=== PATIENT | female | born 1960 | race Caucasian/White ===

== ENCOUNTER → 2024-09-09 | Outpatient (CLI) | payer MEDICARE, SELFPAY ==
[2024-09-09 11:18] LABS: OBS Card Expiration Date 2026-09; OBS Card Lot # 23001; OBS Performed By LAB; OBS QC OK? Yes
[2024-09-09 13:47] LABS: OBS Developer Lot # 23003; Occult Blood, Stool Negative (Negative)
== END | disposition home or self-care (01) ==
LOC: SLDO 11:08
PROVIDERS: Referring Provider Family Medicine; Visit Provider Family Medicine
DX: Z12.11 Encounter for screening for malignant neoplasm of colon (principal)
CPT/HCPCS: 82270

== ENCOUNTER 2024-10-26 21:11 | Emergency (ER) | payer MEDICARE, SELFPAY ==
[2024-10-26 21:20] VITALS: PULSE 156; RESP 18; O2SAT 96
[2024-10-26 21:23] VITALS: BP 139/104; PULSE 145; RESP 18; TEMP 37.6; O2SAT 97
[2024-10-26 21:24] VITALS: BMI 16.9
[2024-10-26 21:25] VITALS: PULSE 142
[2024-10-26 21:29] VITALS: PULSE 141
[2024-10-26] MEDS: SODIUM CHLORIDE 0.9% 1000 ML 1,000 ML 999 ML IV (21:30)
[2024-10-26 21:34] LABS: Basophils # (Auto) 0.1 Thou/mm3 (0.0-0.2); Basophils % (Auto) 1 % (0-2.5); Eosinophils # (Auto) 0.5 Thou/mm3 (0.0-0.5); Eosinophils % (Auto) 5 % (0-10); Hematocrit 42.1 % (36.0-46.0); Hemoglobin 14.2 g/dL (12.0-16.0); Immature Granulocytes % (Auto) 0 % (0-0); Immature Granulocytes Auto 0.02 Thou/mm3 (0.00-0.00); Lymphocytes # (Auto) 3.1 Thou/mm3 (1.0-4.8); Lymphocytes % (Auto) 30 % (10-50); Mean Corpuscular HGB Conc 33.7 g/dl (31.0-37.0); Mean Corpuscular Hemoglobin 30.6 pg (25.0-35.0); Mean Corpuscular Volume 91 fL (80-100); Monocytes # (Auto) 0.6 Thou/mm3 (0.0-0.8); Monocytes % (Auto) 6 % (0-12); Neutrophils % (Auto) 58 % (37-80); Nucleated Red Blood Cell % 0 /100 WBC (0); Platelet Count 388 Thou/mm3 (140-440); RDW Standard Deviation 44.2 fL (36.4-46.3); Red Blood Count 4.64 Miln/mm3 (4.00-5.20); White Blood Count 10.3 Thou/mm3 (3.6-11.0)
--- NOTE | 2024-10-26 21:37 | PD.EDARRY ---
ED Arrhythmia Palp. RME/HPI General Chief Complaint: Chest Pain Stated Complaint: TACHY CARDIA Time Seen by Provider: 10/26/24 21:35 Arrival date/time: 10/26/24 21:11 Limitations: no limitations RME / HPI RME / HPI narrative: Dr. Chung's Main ED Evaluation: 64yo female JENNIFER presents to the ED for a chief complaint of tachycardia. Patien states she feels like her heart has been racing tonight. She reports mild associated shortness of breath. She denies any chest pain, abdominal pain or any other associated symptoms. Related Data Home Medications ?Medication ?Instructions ?Recorded ?Confirmed alprazolam 0.25 mg tablet 0.25 mg PO Q8H PRN Anxiety 08/28/18 10/26/24 amitriptyline 75 mg tablet 150 mg PO HS 08/28/18 10/26/24 carisoprodol 350 mg tablet 1 tab PO Q8H PRN Spasms 08/28/18 10/26/24 hydrocodone 5 mg-acetaminophen 325 1 tab PO Q8H PRN Pain 10/26/24 10/26/24 mg tablet losartan 50 mg tablet 50 mg PO QDAY 10/26/24 10/26/24 Allergies Allergy/AdvReac Type Severity Reaction Status Date / Time eptifibatide Allergy Severe Rash Verified 09/25/19 18:42 [From Integrilin] Sulfa (Sulfonamide Allergy Mild FACE Verified 09/25/19 07:28 Antibiotics) SWELLING Review of Systems Review of Systems Systems Reviewed: All systems reviewed, normal except as documented Past Medical History Past Medical History NEUROLOGIC: Positive Neurological Disorders and Cerebrovascular Accident; Negative Dementia, Seizures, Migraine or Head Trauma CARDIAC: Positive Cardiac Disorders, Myocardial Infarction and Hypertension; Negative Congestive Heart Failure or Cellulitis RESPIRATORY: Positive Pneumonia; Negative Chronic Obstructive Pulmonary Disease (COPD) or Tuberculosis GASTROINTESTINAL: Positive Gastrointestinal Disorders and Irritable Bowel; Negative Hepatitis or Colorectal Cancer GENITOURINARY: Negative Genitourinary Disorders, Renal Disease or Prostate Cancer REPRODUCTIVE: Positive Previous Pregnancies; Negative Breast Cancer or Testicular Cancer MUSCULOSKELETAL: Positive Musculoskeletal Disorders, Rheumatoid Arthritis, Fibromyalgia and Fractures; Negative Bone Cancer or Carpal Tunnel Syndrome ENT: Negative Cataracts or Head Trauma ENDOCRINE: Positive Systemic Lupus Erythematosus; Negative Endocrine Disorders, Diabetes Mellitus Type 1, Diabetes Mellitus Type 2, Hypoglycemia, Hyperthyroidism or Hypothyroidism HEMATOLOGIC: Negative Blood Disorders PSYCHO/SOCIAL: Positive Anxiety OTHER HISTORY: Positive MRSA and Chicken Pox; Negative Hospitalization, Autoimmune Disease, Down Syndrome, Developmental Delay, Shingles, Falls, Blood Transfusions, Anesthesia Reactions, Organ Transplant, Chemotherapy, Radiation Therapy, Hyperbaric Therapy, Human Immunodeficiency Virus (HIV), Measles, Mumps, Rubella (Spanish Measles), Pertussis, Clostridium Difficile, Breast Cancer, Cervical Cancer, Colorectal Cancer, Lung Cancer, Ovarian Cancer, Prostate Cancer or Testicular Cancer Family History FAMILY HISTORY: Positive Family Cardiac Disorders, Family Cancer and Family Surgery; Negative Family Psychiatric Problems, Family Respiratory Disorders, Family Gastrointestinal Problems or Family Anesthesia Reaction Surgical History SURGICAL: Positive Nose Surgery, Tonsillectomy and Hysterectomy; Negative Cardiac Surgery, Open Heart Surgery, Coronary Artery Bypass Graft, Valve Replacement, Vascular Surgery, Coronary Stent, Cardiac Catheterization, Pacemaker, Angiogram, Auto Implanted Cardiovert Defib, Carotid Endarterectomy, Endocrine Surgery, Thyroidectomy, Ear Surgery, Tympanostomy Tube, Eye Surgery, Oral Surgery, Adenoidectomy, Cochlear Implant, Corneal Transplant, Throat Surgery, Abdominal Surgery, Tracheostomy, Gastric Bypass Surgery, Gastrostomy, Bowel Surgery, Nephrectomy, Transurethral Resection, Joint Replacement, Amputation, Open Reduction Internal Fixation, Arthroscopy, Neurologic Surgery, Brain Shunt, Mastectomy, Lumpectomy, Tubal Ligation, Section, Vasectomy or Organ Transplant Social History SMOKING STATUS: Current some day smoker SUBSTANCE USE: marijuana ED Exam General Limitations: Present no limitations General appearance: Present alert and in no apparent distress Head Head exam: Present atraumatic Eye Eye exam: Present normal appearance, PERRL and EOMI ENT ENT exam: Present normal exam, normal oropharynx and mucous membranes moist Neck Neck exam: Present normal inspection, full ROM and trachea midline Chest Chest inspection: Present normal inspection and symmetric chest wall rise Respiratory Respiratory exam: Present normal lung sounds bilaterally Cardiovascular Cardiovascular exam: Present regular rate, normal rhythm and normal heart sounds Abdominal Exam Abdominal exam: Present soft and normal bowel sounds Extremities Exam Extremities exam: Present normal inspection and full ROM Back Exam Back exam: Present normal inspection and full ROM Neurological Exam Neurological exam: Present alert, oriented X3 and CN II-XII intact Psychiatric Psychiatric exam: Present normal affect and normal mood Skin Skin exam: Present warm, dry, intact and normal color Course Quality Measures none Orders Category Date Time Status EKG (ED ONLY) *Do not use* NOW Care 10/26/24 21:18 Completed EKG (ED Only) Stat Exams 10/26/24 21:18 Ordered BNP [B-Type Natriuretic Peptide] Stat Lab 10/26/24 21:16 Received CBC Stat Lab 10/26/24 21:16 Completed Comprehensive Metabolic Panel Stat Lab 10/26/24 21:16 Received Troponin I Stat Lab 10/26/24 21:16 Received Sodium Chloride 0.9% 1000 ml [Ns] 1,000 ml Med 10/26/24 21:19 Active IV 999 mls/hr Vital Signs Vital signs: Vital Signs Temperature 99.7 F 10/26/24 21:23 Pulse Rate 145 H 10/26/24 21:23 Respiratory Rate 18 10/26/24 21:23 Blood Pressure 139/104 H 10/26/24 21:23 Pulse Oximetry (%) 97 10/26/24 21:23 Oxygen Delivery Method Room Air 10/26/24 21:23 Pulse ox is 97% on room air, which is normal according to my interpretation. Arrhythmia/Palpitations Patient data External records reviewed:: [facility] previous records (Per chart review, patient was admitted here on 09/25/19 for NSTEMI.) Clinical information provided by:: patient Social determinants that could affect healthcare access:: none Patient has the following chronic illnesses:: CVA, HTN, lupus How is presenting disease/condition affected by chronic disease/condition?: exacerbated by Evaluation data The following diagnostics were reviewed and interpreted by me:: lab results and EKG tracing(s) Lab and/or radiology exams considered but not ordered:: none Interpretation Summary: CBC is normal, CMP is normal, Troponin is normal, BNP is normal, UA is positive for a UTI, according to my interpretation. EKG done at 2145, SVT, rate of 148, incomplete RBBB, no ST elevations or depressions, no STEMI, according to my interpretation. Medications / Prescriptions Medications or Prescriptions considered but not ordered:: none Medication administrations:: Medication Administration History Sodium Chloride (Ns) 1,000 mls @ 999 mls/hr IV .Q1H1M ONE Stop: 10/26/24 22:19 Last Admin: 10/26/24 21:30 Dose: 999 mls/hr Documented By: DB see above Consultations Consultation(s) initiated? (list below): No Diagnosis Most likely diagnosis given after review of the tests above:: see below Admission Indicated Admission indicated?: not indicated Admission Request Was there a request for admission?: No Disposition Plan Disposition Plan: Discharge Discharge Attestation Discharge Attestation: The patient and all family members were given an opportunity to ask questions and understood the discharge instructions. Discharge instructions specifically effects, indications for sooner follow up or return to the emergency department, and the expected course of current diagnosis. Patient condition: Stable Discharge Plan Plan Patient condition on transfer: Stable Prescriptions/Referrals Prescriptions/Med Rec: No Action amitriptyline 75 mg Tablet 150 mg PO HS carisoprodol 350 mg Tablet 1 tab PO Q8H PRN (Reason: Spasms) alprazolam 0.25 mg Tablet 0.25 mg PO Q8H PRN (Reason: Anxiety) hydrocodone-acetaminophen 5-325 mg Tablet 1 tab PO Q8H PRN (Reason: Pain) losartan 50 mg tablet 50 mg PO QDAY Patient Comments: TAKE ONE TABLET BY MOUTH EVERY DAY FOR BLOOD PRESSURE Referrals: Terry Bloom MD [Primary Care Provider] - In 1 week Problem List Clinical Impression: UTI (urinary tract infection) Patient/Caregiver Discharge Instructions Print Language: [place] African
[2024-10-26] MEDS: LORazepam 0.5 MG TABLET 2 MG PO (21:43)
[2024-10-26 21:51] LABS: Alanine Aminotransferase 21 U/L (10-49); Albumin, Serum 4.7 gm/dL (3.4-4.8); Albumin/Globulin Ratio 1.8 (1.2-2.2); Alkaline Phosphatase 90 U/L (46-116); Anion Gap 8 (7-16); Aspartate Amino Transferase 23 U/L (0-34); BUN/Creatinine Ratio 17 Ratio (12-20); Bilirubin,Total 0.2 mg/dL (0.3-1.2); Blood Urea Nitrogen 19 mg/dL (9-23); Calcium 10.5 mg/dL (8.3-10.6); Calcium (Corrected) 10.5 mg/dL (8.5-10.1); Carbon Dioxide 28.5 mMol/L (20.0-31.0); Chloride 108 mMol/L (98-107); Creatinine (Component) 1.1 mg/dL (0.6-1.3); Estimated Creatinine Clearance 43.1 mL/min (>60); Globulin 2.6 gm/dL (2.3-3.5); Glucose 146 mg/dL (74-106); Osmolality,Calculated 292 (275-295); Potassium 3.8 mMol/L (3.4-5.1); Sodium 144 mMol/L (136-145); Total Protein 7.3 gm/dL (5.7-8.2); Troponin I 0.023 ng/mL (0.0-0.045); eGFR 56 See Note
[2024-10-26 21:58] LABS: B-Type Natriuretic Peptide 53 pg/mL (0-100)
[2024-10-26 22:55] LABS: Magnesium 2.1 mg/dL (1.6-2.6); Phosphorous 4.7 mg/dL (2.4-5.1)
[2024-10-26 23:13] VITALS: BP 123/72; PULSE 126; RESP 19; TEMP 36.9; O2SAT 98
[2024-10-26 23:39] LABS: Collection Type, Urine Voided
[2024-10-26 23:43] LABS: Bilirubin,Urine Negative (Negative); Blood,Urine 3+ (Negative); Clarity,Urine Clear (Clear/Hazy); Color,Urine Lt-Yellow (Lt Yel-Yel); Glucose, Urine Negative (Negative); Hyaline Casts,Urine < 1 /hpf (0-1); Ketones,Urine Negative (Negative); Leukocyte Esterase,Urine Positive (Negative); Nitrite,Urine Negative (Negative); PH,Urine 5.5 (5.0-7.0); Protein,Urine 1+ (Neg - Trace); RBC,Urine 9 /hpf (0-3); Specific Gravity,Urine 1.015 (1.001-1.035); Squamous Epithelial Cell,Urine 1 /hpf (0-5); Urobilinogen,Urine Negative mg/dL (0.0-1.0); WBC,Urine 18 /hpf (0-5)
[2024-10-27 01:00] VITALS: BP 126/77; PULSE 122; RESP 17; TEMP 37.1; O2SAT 96
[2024-10-27] MEDS: SODIUM CHLORIDE 0.9% 1000 ML 1,000 ML 999 ML IV (01:48)
[2024-10-27] MEDS: cefTRIAXone 1,000 MG in SODIUM CHLORIDE 0.9% (P) 50 ML 100 MG IV (01:48)
[2024-10-27 02:50] VITALS: BP 117/67; PULSE 77; RESP 16; TEMP 36.9; O2SAT 98
== END 2024-10-27 02:50 | disposition home or self-care (01) ==
PROVIDERS: Emergency Provider Emergency Medicine; PCP Family Medicine
DX: N39.0 Urinary tract infection, site not specified (principal)
CPT/HCPCS: 36415; 80053; 81001; 83735; 83880; 84100; 84484; 85025; 93005; 96361; 96365; 99284; J0696; J7030; J7050; A9270

== ENCOUNTER → 2024-11-04 | Outpatient (CLI) | payer MEDICARE, SELFPAY | END | disposition home or self-care (01) | LOC: SLDO 13:02 | PROVIDERS: Referring Provider Family Medicine; Visit Provider Family Medicine | DX: N39.0 Urinary tract infection, site not specified (principal) | CPT/HCPCS: 87086 ==

== ENCOUNTER 2024-12-08 07:12 | Emergency (ER) | payer MEDICARE, SELFPAY ==
[2024-12-08 07:13] VITALS: BMI 18.1
--- NOTE | 2024-12-08 07:17 | EKG_ITS ---
[facility] (Formerly [facility])[3] Test Date: 2024-12-08 Pat Name: GOPAL LORD Department: Room: - Gender: Female Corporate Security Officer: : 1960 Requested By: Solis Velarde (DAVI) Order Number: [id number] Reading MD: Solis Velarde (COURTESY DRIVER) Measurements Intervals [place] Rate: 169 P: SD: QRS: -43 QRSD: 98 T: 85 QT: 256 QTc: 429 Interpretive Statements SUPRAVENTRICULAR TACHYCARDIA MARKED LEFT AXIS DEVIATION [QRS AXIS < -30] INCOMPLETE RIGHT BUNDLE BRANCH BLOCK [90+ ms QRS DURATION, TERMINAL R IN V1/V2, 40+ ms S IN I/aVL/V4/V5/V6] POSSIBLE SEPTAL MYOCARDIAL INFARCTION , OF INDETERMINATE AGE [30 ms Q WAVE IN V1/V2] Compared to ECG 09/26/2019 18:30:28 Left-axis deviation now present Incomplete right bundle-branch block now present Myocardial infarct finding now present Sinus rhythm no longer present Left anterior fascicular block no longer present T-wave abnormality no longer present Possible ischemia no longer present /store/S0/[id number].pdf
[2024-12-08 07:26] VITALS: BP 101/75; PULSE 169; RESP 20; TEMP 36.6; O2SAT 98
--- NOTE | 2024-12-08 07:28 | XR_ITS ---
Examination: AP chest single view Technique one AP portable upright chest single view Exam date and time: December 08, 2024 0736 hrs. Comparison February 22, 2021 Indications: Chest pain shortness of breath today. Findings: Significant hyperexpansion Mild prominence left ventricle Stable nodule left lower lobe No interval pneumonia or pulmonary edema Impression: COPD No interval pneumonia or pulmonary edema
[2024-12-08 07:36] VITALS: PULSE 96
[2024-12-08 07:39] VITALS: BP 156/79; PULSE 94; RESP 19; O2SAT 97
[2024-12-08 08:04] LABS: Basophils # (Auto) 0.1 Thou/mm3 (0.0-0.2); Basophils % (Auto) 1 % (0-2.5); Eosinophils # (Auto) 0.4 Thou/mm3 (0.0-0.5); Eosinophils % (Auto) 5 % (0-10); Hematocrit 43.3 % (36.0-46.0); Hemoglobin 14.3 g/dL (12.0-16.0); Immature Granulocytes % (Auto) 0 % (0-0); Immature Granulocytes Auto 0.02 Thou/mm3 (0.00-0.00); Lymphocytes # (Auto) 1.6 Thou/mm3 (1.0-4.8); Lymphocytes % (Auto) 17 % (10-50); Mean Corpuscular Hemoglobin 30.2 pg (25.0-35.0); Mean Corpuscular Volume 92 fL (80-100); Monocytes # (Auto) 0.5 Thou/mm3 (0.0-0.8); Monocytes % (Auto) 6 % (0-12); Neutrophils # (Auto) 6.4 Thou/mm3 (1.8-7.7); Neutrophils % (Auto) 71 % (37-80); Nucleated Red Blood Cell % 0 /100 WBC (0); Platelet Count 407 Thou/mm3 (140-440); RDW Standard Deviation 44.3 fL (36.4-46.3); Red Blood Count 4.73 Miln/mm3 (4.00-5.20)
--- NOTE | 2024-12-08 08:04 | PC.NURSE ---
PT IN TODAY FOR PALPITATIONS AFTER WAKING UP THIS MORNING. PT STATES THAT THIS HAS HAPPENED IN THE PAST. PT DID NOT FEEL THE PALPITATIONS CALMING DOWN SO SHE CAME IN FOR EVALUATION. ON ARRIVAL TO THE ER PT'S HR WAS 160'S, WHEN PT ARRIVED IN ROOM HR WAS IN THE 90'S AND SR. PT IS A/OX4 AND COOPERATING. PT CONNECTED TO MONITOR AND IV STARTED AND BLOOD COLLECTED. PT DOES SEE DR. SANDERS AN OUT PATIENT. DR. CARLSON SEEN PT AND WILL FOLLOW THROUGH WITH ORDERS.
[2024-12-08 08:22] LABS: Alanine Aminotransferase 32 U/L (10-49); Albumin, Serum 4.7 gm/dL (3.4-4.8); Albumin/Globulin Ratio 1.6 (1.2-2.2); Alkaline Phosphatase 93 U/L (46-116); Anion Gap 10 (7-16); Aspartate Amino Transferase 21 U/L (0-34); BUN/Creatinine Ratio 28 Ratio (12-20); Bilirubin,Total 0.3 mg/dL (0.3-1.2); Blood Urea Nitrogen 39 mg/dL (9-23); Calcium 9.4 mg/dL (8.3-10.6); Calcium (Corrected) 9.4 mg/dL (8.5-10.1); Carbon Dioxide 25.3 mMol/L (20.0-31.0); Chloride 105 mMol/L (98-107); Creatinine (Component) 1.4 mg/dL (0.6-1.3); Estimated Creatinine Clearance 36.2 mL/min (>60); Glucose 194 mg/dL (74-106); Osmolality,Calculated 293 (275-295); Potassium 4.6 mMol/L (3.4-5.1); Sodium 140 mMol/L (136-145); Total Protein 7.7 gm/dL (5.7-8.2); Troponin I 0.026 ng/mL (0.0-0.045); eGFR 42 See Note
--- NOTE | 2024-12-08 08:47 | PD.EDADULT ---
ED General RME/HPI General Chief complaint: Arrhythmia/Palpitations Stated complaint: PALPITATIONS Time Seen by Provider: 12/08/24 07:51 Arrival date/time: 12/08/24 07:12 RME / HPI RME / HPI narrative: 64-year-old female with a history of tachycardia , followed by Dr. Dia, and recent nuclear cardiac testing, who presents to the emergency department after waking this morning with palpitations as if her heart is racing , and anxiety. She denies chest pain, she does note some shortness of breath and lightheadedness. Otherwise she is of her normal state of health and denies recent illness. She says her appetite is always been poor and has not worsened recently. Related Data Home Medications ?Medication ?Instructions ?Recorded ?Confirmed alprazolam 0.25 mg tablet 0.25 mg PO Q8H PRN Anxiety 08/28/18 10/26/24 amitriptyline 75 mg tablet 150 mg PO HS 08/28/18 10/26/24 carisoprodol 350 mg tablet 1 tab PO Q8H PRN Spasms 08/28/18 10/26/24 hydrocodone 5 mg-acetaminophen 325 1 tab PO Q8H PRN Pain 10/26/24 10/26/24 mg tablet losartan 50 mg tablet 50 mg PO QDAY 10/26/24 10/26/24 Previous Rx's ?Medication ?Instructions ?Recorded cephalexin 500 mg capsule 500 mg PO TID #21 caps 10/27/24 cephalexin 500 mg capsule 500 mg PO TID #21 caps 10/27/24 Allergies Allergy/AdvReac Type Severity Reaction Status Date / Time eptifibatide (From Allergy Severe Rash Verified 09/25/19 18:42 Integrilin) Sulfa (Sulfonamide Allergy Mild FACE Verified 09/25/19 07:28 Antibiotics) SWELLING Review of Systems Review of Systems Systems Reviewed: All systems reviewed, normal except as documented ED Exam Narrative Physical exam: GENERAL APPEARANCE: AxOx4, generally well-appearing, no acute distress. HEENT: NC, AT. MMM. EOMI, clear conjunctiva, oropharynx clear. NECK: Supple without lymphadenopathy. No stiffness or restricted ROM. HEART: Normal rate and regular rhythm, normal S1/S1, no m/r/g LUNGS: CTAB, moving air well. No crackles or wheezes are heard. ABDOMEN: Soft, nontender, nondistended with good bowel sounds heard. BACK: No midline C/T/L spine pain or deformity, No CVAT, no obvious deformity. EXTREMITIES: Without cyanosis, clubbing or edema. MUSCULOSKELETAL: FROM of all major joints, no chest tenderness NEUROLOGICAL: Grossly nonfocal. Alert and oriented, moving all 4 extremities. CN not formally tested but appear grossly intact. Observed to ambulate with normal gait. Skin: Warm and dry without any rash. Course Quality Measures none Orders Category Date Time Status Cloth Inspector NOW Care 12/08/24 07:28 Completed EKG (ED ONLY) *Do not use* NOW Care 12/08/24 07:17 Completed Insert IV NOW Care 12/08/24 07:28 Completed EKG (ED Only) Stat Exams 12/08/24 07:17 Draft XR chest 1V portable Stat Exams 12/08/24 07:28 Completed CBC Stat Lab 12/08/24 07:40 Completed Comprehensive Metabolic Panel Stat Lab 12/08/24 07:40 Completed Troponin I Stat Lab 12/08/24 07:40 Completed Diazepam [Valium] Med 12/08/24 08:46 Discontinued 5 mg PO X1 ONE Sodium Chloride 0.9% 1000 ml [Ns] 1,000 ml Med 12/08/24 08:46 Discontinued IV 999 mls/hr Vital Signs Vital signs: Vital Signs Temperature 97.9 F 12/08/24 07:26 Pulse Rate 169 H 12/08/24 07:26 Respiratory Rate 20 12/08/24 07:26 Blood Pressure 101/75 12/08/24 07:26 Pulse Oximetry (%) 98 12/08/24 07:26 Oxygen Delivery Method Room Air 12/08/24 07:26 Procedures -ED EKG Interpretation #1: Date of EK12/08/24 Time of EK:24 Rate: 169 Interpretation: Interpreted by me EKG Impression: SVT MDM Patient data External records reviewed:: [facility] previous records Clinical information provided by:: patient and spouse Social determinants that could affect healthcare access:: none Patient has the following chronic illnesses:: None How is presenting disease/condition affected by chronic disease/condition?: no chronic disease Evaluation data The following diagnostics were reviewed and interpreted by me:: lab results and EKG tracing(s) Lab and/or radiology exams considered but not ordered:: None Interpretation Summary: As per narrative Medications Medications considered but not ordered:: None Medication administrations:: Medication Administration History Discontinued Medications Diazepam (Diazepam 5 Mg Tablet) 5 mg PO X1 ONE Stop: 12/08/24 08:47 Last Admin: 12/08/24 08:52 Dose: 5 mg Documented By: GOSIA Sodium Chloride (Ns) 1,000 mls @ 999 mls/hr IV .Q1H1M ONE Stop: 12/08/24 09:46 Last Infusion: 12/08/24 11:02 Dose: Infused Documented By: Admin: 12/08/24 08:52 Dose: 999 mls/hr Documented By: GOSIA Above Consultations Consultation(s) initiated? (list below): No Diagnosis Differential Diagnosis ED Complaint MDM: SVT, atrial fibrillation, atrial flutter, sinus tachycardia Most likely diagnosis given after review of the tests above:: See below Admission Indicated Admission indicated?: not indicated Explain why admission is indicated or not indicated:: As per narrative Admission Request Was there a request for admission?: No Disposition Plan Disposition Plan: Discharge Discharge Attestation Discharge Attestation: The patient and all family members were given an opportunity to ask questions and understood the discharge instructions. Discharge instructions specifically effects, indications for sooner follow up or return to the emergency department, and the expected course of current diagnosis. Patient condition: Stable Medical Decision Making MDM Narrative MDM Narrative: Ms. Lewis is a very pleasant female with a long history of recurrent subjective palpitations who presents to the emergency department with sensation of heart racing where initial EKG captured her in PSVT. She had self converted by the time she was brought back to room 5. She has been otherwise well and asymptomatic while she is here. She does note occasionally she has poor appetite/p.o. As a result laboratory testing to assess for electrolytes were sent and were significant for a mildly elevated creatinine. She was hydrated here in the emergency department to prevent further return into SVT. She remained steady with normal telemetry throughout her emergency department stay. As she has given she is in normal sinus rhythm, there is no acute findings on her workup, she is appropriate for outpatient follow-up with her flight deck officer. Differential Diagnosis Differential Diagnosis: SVT, atrial fibrillation, atrial flutter, sinus tachycardia Lab Data 12/08/24 07:40 12/08/24 07:40 Labs: Lab Results 12/08/24 Range/Units 07:40 WBC 9.0 (3.6-11.0) Thou/mm3 RBC 4.73 (4.00-5.20) Miln/mm3 Hgb 14.3 (12.0-16.0) g/dL Hct 43.3 (36.0-46.0) % MCV 92 (80-100) fL MCH 30.2 (25.0-35.0) pg MCHC 33.0 (31.0-37.0) g/dl RDW Std Deviation 44.3 (36.4-46.3) fL Plt Count 407 (140-440) Thou/mm3 Neut % (Auto) 71 (37-80) % Lymph % (Auto) 17 (10-50) % [place] % (Auto) 6 (0-12) % Eos % (Auto) 5 (0-10) % Baso % (Auto) 1 (0-2.5) % Neut # (Auto) 6.4 (1.8-7.7) Thou/mm3 Lymph # (Auto) 1.6 (1.0-4.8) Thou/mm3 [place] # (Auto) 0.5 (0.0-0.8) Thou/mm3 Eos # (Auto) 0.4 (0.0-0.5) Thou/mm3 Baso # (Auto) 0.1 (0.0-0.2) Thou/mm3 Immature Gran # (Auto) 0.02 H (0.00-0.00) Thou/mm3 Absolute Nucleated RBC 0.00 (0.00-0.00) Thou/mm3 Immature Gran % 0 (0-0) % Nucleated RBC % 0 (0) /100 WBC Sodium 140 (136-145) mMol/L Potassium 4.6 (3.4-5.1) mMol/L Chloride 105 (98-107) mMol/L Carbon Dioxide 25.3 (20.0-31.0) mMol/L Anion Gap 10 (7-16) BUN 39 H (9-23) mg/dL Creatinine 1.4 H (0.6-1.3) mg/dL Estim Creat Clear Calc 36.2 L (>60) mL/min eGFR 42 L (60 - ) See Note BUN/Creatinine Ratio 28 H (12-20) Ratio Glucose 194 H (74-106) mg/dL Calculated Osmolality 293 (275-295) Calcium 9.4 (8.3-10.6) mg/dL Corrected Calcium 9.4 (8.5-10.1) mg/dL Total Bilirubin 0.3 (0.3-1.2) mg/dL AST 21 (0-34) U/L ALT 32 (10-49) U/L Alkaline Phosphatase 93 (46-116) U/L Troponin I 0.026 (0.0-0.045) ng/mL Total Protein 7.7 (5.7-8.2) gm/dL Albumin 4.7 (3.4-4.8) gm/dL Globulin 3.0 (2.3-3.5) gm/dL Albumin/Globulin Ratio 1.6 (1.2-2.2) Discharge Plan Plan Patient Disposition: HOME (Self Care) Prescriptions/Referrals Prescriptions/Med Rec: No Action amitriptyline 75 mg Tablet 150 mg PO HS carisoprodol 350 mg Tablet 1 tab PO Q8H PRN (Reason: Spasms) alprazolam 0.25 mg Tablet 0.25 mg PO Q8H PRN (Reason: Anxiety) hydrocodone-acetaminophen 5-325 mg Tablet 1 tab PO Q8H PRN (Reason: Pain) losartan 50 mg tablet 50 mg PO QDAY Patient Comments: TAKE ONE TABLET BY MOUTH EVERY DAY FOR BLOOD PRESSURE cephalexin 500 mg capsule 500 mg PO TID Qty: 21 0RF cephalexin 500 mg capsule 500 mg PO TID Qty: 21 0RF Referrals: Terry Bloom MD [Primary Care Provider] - In 1 week Problem List Clinical Impression: Paroxysmal supraventricular tachycardia Patient/Caregiver Discharge Instructions Education Materials: Supraventricular Tachycardia, ED Tachycardia: PAT Additional Instructions: Follow-up with your flight deck officer, Dr. Dia, in 2 to 3 days for recheck. You can return to the emergency department sooner if symptoms worsen or if you notice any new, concerning issues Print Language: Citizen [place] Stand Alone Forms: Paulina Award Info., Patient Portal Info Letter
[2024-12-08] MEDS: SODIUM CHLORIDE 0.9% 1000 ML 1,000 ML 999 ML IV (08:52)
[2024-12-08] MEDS: DIAZEPAM 5 MG TABLET PO (08:52)
[2024-12-08 08:56] VITALS: BP 110/63; PULSE 85; RESP 21; O2SAT 96
[2024-12-08 11:19] VITALS: BP 133/65; PULSE 79; RESP 20; TEMP 36.7; O2SAT 97
== END 2024-12-08 11:24 | disposition home or self-care (01) ==
PROVIDERS: Nurse Practitioner Primary Care; Emergency Provider Emergency Medicine; PCP Family Medicine
DX: I47.19 Other supraventricular tachycardia (principal)
CPT/HCPCS: 36415; 71045; 80053; 84484; 85025; 93005; 96360; 96361; 99284; J7030; A9270

== ENCOUNTER → 2024-12-17 | Outpatient (CLI) | payer MEDICARE, SELFPAY | END | disposition home or self-care (01) | LOC: SLDO 14:36 | PROVIDERS: PCP Family Medicine; Referring Provider Family Medicine; Visit Provider Family Medicine | DX: N39.0 Urinary tract infection, site not specified (principal) | CPT/HCPCS: 87086 ==

== ENCOUNTER → 2024-12-31 | Outpatient (CLI) | payer MEDICARE, SELFPAY ==
--- NOTE | 2024-12-31 11:05 | XR_ITS ---
Examination: CT abdomen and pelvis without contrast. Coronal 3-D reconstructions. Sagittal 2-D reconstructions. Date and time of exam:December 31, 2024 1141 hrs. Indications: Bilateral flank pain hematuria beginning one week ago CTDI: vol (mGy): 5.70 DLP: (mGycm): 380 Technique: Axial images of the abdomen have been obtained, 3 mm slice thickness Intravenous contrast material has not been administered. Low dose protocols were performed. One or more of the following dose reduction techniques were used; automated exposure control, adjustment of the mA and/or KV according to patient size, use of iterative reconstruction technique. Findings: No focal liver or splenic lesion, hepatomegaly 18 cm Contracted gallbladder No pancreatic or adrenal mass No renal or ureteral calculi, no hydronephrosis Aortic calcification no aneurysmal dilatation No bowel obstruction No pericecal inflammatory change No bladder mass or bladder calculi No pelvic mass Moderate osteopenia Impression: No renal or ureteral calculi, no hydronephrosis No bladder mass or bladder calculi
== END | disposition home or self-care (01) ==
LOC: SCAT 10:54
PROVIDERS: PCP Family Medicine; Referring Provider Family Medicine; Visit Provider Family Medicine
DX: N20.0 Calculus of kidney (principal)
CPT/HCPCS: 74176

== ENCOUNTER 2025-02-13 06:39 | Day surgery (SDC) | payer MEDICARE, SELFPAY ==
--- NOTE | 2025-02-11 09:27 | EKG_ITS ---
[facility] Test Date: 2025-02-11 Pat Name: GOPAL LORD Department: Room: - Gender: Female Managing Consultant: MIREYA : 1960 Requested By: José Miguel Dia Order Number: [id number] Reading MD: José Miguel Dia Measurements Intervals [place] Rate: 70 P: 75 [place]: 169 QRS: -18 QRSD: 84 T: 57 QT: 382 QTc: 415 Interpretive Statements SINUS RHYTHM POSSIBLE LEFT ATRIAL ENLARGEMENT [-0.1mV P WAVE IN V1/V2] POSSIBLE RIGHT VENTRICULAR CONDUCTION DELAY [RSR (QR) IN V1/V2] Compared to ECG 12/08/2024 07:24:59 Supraventricular tachycardia no longer present Left-axis deviation no longer present Incomplete right bundle-branch block no longer present Myocardial infarct finding no longer present /store/S0/[id number]/[id number].pdf
[2025-02-11 11:09] LABS: Basophils # (Auto) 0.1 Thou/mm3 (0.0-0.2); Basophils % (Auto) 1 % (0-2.5); Eosinophils # (Auto) 0.3 Thou/mm3 (0.0-0.5); Eosinophils % (Auto) 4 % (0-10); Hematocrit 39.3 % (36.0-46.0); Hemoglobin 13.1 g/dL (12.0-16.0); Immature Granulocytes % (Auto) 0 % (0-0); Immature Granulocytes Auto 0.02 Thou/mm3 (0.00-0.00); Lymphocytes # (Auto) 1.2 Thou/mm3 (1.0-4.8); Lymphocytes % (Auto) 18 % (10-50); Mean Corpuscular HGB Conc 33.3 g/dl (31.0-37.0); Mean Corpuscular Hemoglobin 30.4 pg (25.0-35.0); Mean Corpuscular Volume 91 fL (80-100); Monocytes # (Auto) 0.4 Thou/mm3 (0.0-0.8); Monocytes % (Auto) 6 % (0-12); Neutrophils # (Auto) 4.7 Thou/mm3 (1.8-7.7); Neutrophils % (Auto) 72 % (37-80); Nucleated Red Blood Cell % 0 /100 WBC (0); Platelet Count 334 Thou/mm3 (140-440); RDW Standard Deviation 43.8 fL (36.4-46.3); Red Blood Count 4.31 Miln/mm3 (4.00-5.20); White Blood Count 6.6 Thou/mm3 (3.6-11.0)
[2025-02-11 11:16] LABS: INR 0.9 (0.9-1.3); Partial Thromboplastin Time 29.6 Seconds (22.0-36.0); Prothrombin Time 10.3 Seconds (9.0-12.2)
[2025-02-11 11:28] LABS: Anion Gap 4 (7-16); BUN/Creatinine Ratio 13 Ratio (12-20); Blood Urea Nitrogen 13 mg/dL (9-23); Carbon Dioxide 28.7 mMol/L (20.0-31.0); Chloride 107 mMol/L (98-107); Glucose 102 mg/dL (74-106); Osmolality,Calculated 279 (275-295); Potassium 4.6 mMol/L (3.4-5.1); Sodium 140 mMol/L (136-145); eGFR > 60 See Note
[2025-02-11 15:20] VITALS: BMI 18.6
[2025-02-13] VITALS (15 sets, daily range): BP systolic 139–180; BP diastolic 67–81; PULSE 66–79; RESP 13–20; TEMP 36.6–36.7; O2SAT 94–99; BMI 19.2
[2025-02-13] MEDS: DIAZEPAM 5 MG TABLET PO (07:11)
--- NOTE | 2025-02-13 08:10 | ESOP_ITS ---
Cardiac Cath Procedure Procedure Narrative date of the procedure 02/13/2025 Title of the procedure 1. Left heart catheterization 2. Left coronary angiogram 3. Right coronary angiogram 4. Left ventriculogram 5. Conscious sedation 6. Radiographic interpretation supervision 7. Ultrasound guidence for Right radial access Indication for the procedure This is a 64-year-old female with past medical history of hypertension hyperlipidemia complains of anterior chest pain Cardiolite scan was equivocal Cardiac catheterization and coronary angiogram recommended Procedure This is done in the cardiac lab under continuous electrocardiographic monitoring Intermittent blood pressure monitoring right radial arterial access obtained using modified Seldinger technique 6 Swedish radial sheath was placed under ultrasound guidence TIG catheter was used for selective injection of the Left coronary artery TIG cather was used for selective injection of the Right coroanry artery TIG cather was used for LV gram Findings Hemodynamics Left ventricular systolic function is 60% Left ventricular end-diastolic pressure is 18 mmHg Gradient across the aortic valve is 0 mm gradient Coronary anatomy Right dominance Left main coronary artery is normal Left anterior descending artery is showing 50% lesion in the midsegment Diagonal vessel is normal Left circumflex artery is normal Obtuse marginal vessel is luminal irregularities Right coronary artery is showing luminal regularities Posterior descending artery is normal Conclusion Borderline lesion in the mid LAD Continue medical management Recommendation Medical management
--- NOTE | 2025-02-13 11:54 | PC.NURSE ---
0813 patient is awake, alert breathing unlabored, s/p LHC by Dr. Dia. TR band present to right wrist with no bleeding or hematoma. Report received from Solis CRUMP, patient to recover for 3 hours and be discharged 1hr post TR band removal. 1010 TR band removed from right wrist, no bleeding or hematoma noted. site covered with tegaderm and coban. 1113 patient is awake, alert, breathing unlabored, dressing to right wrist dry with no bleeding, patient did not want to eat food tray but was able to tolerate water with no nausea or vomiting. patient able to ambulate to bathroom and void, meets discharge criteria, discharge instructions have been given to patient and , patient discharged home in wheelchair with all belongings.
== END 2025-02-13 11:13 | disposition home or self-care (01) ==
PROVIDERS: PCP Family Medicine; Referring Provider Internal Medicine; Visit Provider Internal Medicine
PROC: (CPT 93458; principal; 2025-02-13 07:45)
DX: I25.118 Atherosclerotic heart disease of native coronary artery with other forms of angina pectoris (principal); E78.5 Hyperlipidemia, unspecified; I10 Essential (primary) hypertension; Z01.810 Encounter for preprocedural cardiovascular examination
CPT/HCPCS: 93458; 36415; 80048; 85025; 85610; 85730; 93005; 99152; A4216; A4649; C1769; C1887; C1894; J0153; J0171; J0282; J0461; J0583; J1643; J2250; J2310; J2371; J3010; J3490; J7050; Q9967; A9270; J2305

== ENCOUNTER 2025-02-13 13:00 | Emergency (ER) | payer SELFPAY ==
--- NOTE | 2025-02-13 13:21 | PC.NURSE ---
called for pt from lobby/outside, no answerx1@ [id number]
--- NOTE | 2025-02-13 13:37 | PC.NURSE ---
called for pt from lobby/outside, no answerx2@ [id number]
--- NOTE | 2025-02-13 15:11 | PC.NURSE ---
called for pt from lobby/outside, no [phone]
== END 2025-02-13 15:54 | disposition left against medical advice (07) ==
LOC: SERX 15:14
PROVIDERS: Emergency Provider Emergency Medicine
DX: Z53.21 Procedure and treatment not carried out due to patient leaving prior to being seen by health care provider (principal)

== ENCOUNTER → 2025-07-10 | Outpatient (CLI) | payer MEDICARE, SELFPAY ==
[2025-07-10 09:52] LABS: Basophils # (Auto) 0.0 Thou/mm3 (0.0-0.2); Basophils % (Auto) 1 % (0-2.5); Eosinophils # (Auto) 0.3 Thou/mm3 (0.0-0.5); Eosinophils % (Auto) 4 % (0-10); Hematocrit 38.7 % (36.0-46.0); Hemoglobin 12.7 g/dL (12.0-16.0); Immature Granulocytes Auto 0.02 Thou/mm3 (0.00-0.00); Lymphocytes # (Auto) 1.2 Thou/mm3 (1.0-4.8); Lymphocytes % (Auto) 18 % (10-50); Mean Corpuscular HGB Conc 32.8 g/dl (31.0-37.0); Mean Corpuscular Hemoglobin 31.3 pg (25.0-35.0); Mean Corpuscular Volume 95 fL (80-100); Monocytes # (Auto) 0.4 Thou/mm3 (0.0-0.8); Monocytes % (Auto) 5 % (0-12); Neutrophils # (Auto) 4.8 Thou/mm3 (1.8-7.7); Neutrophils % (Auto) 72 % (37-80); Nucleated Red Blood Cell # 0.00 Thou/mm3 (0.00-0.00); Nucleated Red Blood Cell % 0 /100 WBC (0); Platelet Count 282 Thou/mm3 (140-440); RDW Standard Deviation 45.7 fL (36.4-46.3); Red Blood Count 4.06 Miln/mm3 (4.00-5.20); White Blood Count 6.7 Thou/mm3 (3.6-11.0)
[2025-07-10 09:55] LABS: Anion Gap 6 (7-16); BUN/Creatinine Ratio 16 Ratio (12-20); Blood Urea Nitrogen 16 mg/dL (9-23); Calcium 9.8 mg/dL (8.3-10.6); Carbon Dioxide 28.0 mMol/L (20.0-31.0); Chloride 110 mMol/L (98-107); Creatinine (Component) 1.0 mg/dL (0.6-1.3); Glucose 84 mg/dL (74-106); Osmolality,Calculated 287 (275-295); Potassium 4.6 mMol/L (3.4-5.1); Sodium 144 mMol/L (136-145); eGFR > 60 See Note
[2025-07-10 09:56] LABS: INR 0.9 (0.9-1.3); Partial Thromboplastin Time 27.5 Seconds (22.0-36.0); Prothrombin Time 10.4 Seconds (9.0-12.2)
== END | disposition home or self-care (01) ==
LOC: COPL 08:23
PROVIDERS: PCP Family Medicine; Referring Provider Internal Medicine; Visit Provider Internal Medicine
DX: I25.10 Atherosclerotic heart disease of native coronary artery without angina pectoris (principal); I48.91 Unspecified atrial fibrillation
CPT/HCPCS: 36415; 80048; 85025; 85610; 85730

== ENCOUNTER → 2025-08-12 | Outpatient (CLI) | payer MEDICARE, SELFPAY ==
--- NOTE | 2025-08-12 10:02 | XR_ITS ---
EXAMINATION: Cervical spine, 5 views Technique: Cervical spine AP, AP odontoid, lateral, bilateral obliques, 5 views Exam date and time: August 12, 2025, 10:24 a.m. INDICATIONS: Neck pain with burning sensation in the neck 3 months FINDINGS: Cervical fusion C4-7 with satisfactory alignment Intact odontoid No cervical fracture No significant cervical disc narrowing above or below the fusion site Moderate bilateral neuroforaminal stenosis C4-C5, C5-C6, C6-C7 Soft tissue bilateral carotid calcification Impression: Status post cervical fusion with satisfactory alignment Bilateral neural foraminal stenosis as above
== END | disposition home or self-care (01) ==
LOC: CDIM 08-14 08:04
PROVIDERS: PCP Family Medicine; Referring Provider Family Medicine; Visit Provider Family Medicine
DX: M43.22 Fusion of spine, cervical region (principal); M48.02 Spinal stenosis, cervical region
CPT/HCPCS: 72050

== ENCOUNTER → 2025-08-14 | Outpatient (CLI) | payer MEDICARE, SELFPAY ==
--- NOTE | 2025-08-14 09:24 | XR_ITS ---
Examination: CT brain head without contrast. 2-D sagittal coronal reconstructions Date and time of exam: August 14, 2025, 0928 hours, comparison April 18, 2018 INDICATIONS: Onset vertigo beginning 3 months ago CTDI: vol (mGy): 48.6 DLP: (mGycm): 976 Technique: Multiple CT axial sections of the brain have been obtained, 5 mm slice thickness. Contrast has not been administered. 2-D sagittal, coronal reconstructions have been obtained Low dose protocols were performed. One or more of the following dose reduction techniques were used; automated exposure control, adjustment of the mA and/or KV according to patient size, use of iterative reconstruction technique. Findings: No significant ventricular enlargement. Intra-axial or extra-axial hemorrhage density is not seen. No mass effect or midline shift Basal cisterns are not remarkable. Fourth ventricle is midline. Cranial vault intact. Impression: Negative for acute hemorrhage, mass effect or midline shift Advise clinical correlation and follow-up accordingly
== END | disposition home or self-care (01) ==
PROVIDERS: PCP Family Medicine; Referring Provider Family Medicine; Visit Provider Family Medicine
DX: R42 Dizziness and giddiness (principal)
CPT/HCPCS: 70450

== ENCOUNTER → 2025-09-10 | Outpatient (CLI) | payer MEDICARE, SELFPAY ==
--- NOTE | 2025-09-10 11:00 | XR_ITS ---
Procedure: Bilateral carotid duplex with waveform analysis. Study date and time: 09/10/2025, 10:56 a.m. Indication: Dizziness and giddiness. Comparison: None. Findings: Within the right carotid arterial system, there is mild heterogeneous plaque at the carotid bulb and proximal ICA. The Doppler velocities and waveforms are normal with a peak systolic velocity of 110 cm/s in the distal internal carotid artery. The ICA/CCA ratio is 2.1. Intact normal antegrade flow in the right vertebral artery. Within the left carotid arterial system, there is suggestion of very mild intimal hyperplasia at the carotid bulb with otherwise no significant calcified plaque formation. The Doppler velocities and waveforms are normal with a peak systolic velocity of 118 cm/s in the distal internal carotid artery. The ICA/CCA ratio is 1.8. Intact normal antegrade flow in the left vertebral artery. Impression: Elevated ICA/CCA ratio on the right side is believed spurious and related to distal internal carotid artery tortuosity. The proximal internal carotid artery velocity on this side measures 84 cm/s and this yields an ICA/CCA ratio of 1.6 and no hemodynamically significant ICA stenosis is suspected. No evidence for hemodynamically significant left ICA stenosis. If indicated, further evaluation with CTA head and neck could be obtained. Degree of stenosis (%) ? normal: o ICA PSV is <125 cm/sec and no plaque or intimal thickening is visible sonographically o additional criteria include ICA/CCA PSV ratio <2.0 and ICA EDV <40 cm/sec ? <50% ICA stenosis: o ICA PSV is <125 cm/sec and plaque or intimal thickening is visible sonographically o additional criteria include ICA/CCA PSV ratio <2.0 and ICA EDV <40 cm/sec ? 50-69% ICA stenosis: o ICA PSV is 125-230 cm/sec and plaque is visible sonographically o additional criteria include ICA/CCA PSV ratio of 2.0-4.0 and ICA EDV of 40-100 cm/sec ? ?70% ICA stenosis but less than near occlusion: o ICA PSV is >230 cm/sec and visible plaque and luminal narrowing are seen at meehan-scale and colour Doppler ultrasound (the higher the Doppler parameters lie above the threshold of 230 cm/sec, the greater the likelihood of severe disease) o additional criteria include ICA/CCA PSV ratio >4 and ICA EDV >100 cm/sec ? near occlusion of the ICA: o velocity parameters may not apply, since velocities may be high, low, or undetectable o diagnosis is established primarily by demonstrating a markedly narrowed lumen at colour or power Doppler ultrasound ? total occlusion of the ICA: o no detectable patent lumen at meehan-scale US and no flow with spectral, power, and colour Doppler ultrasound o there may be compensatory increased velocity in the contralateral carotid [PSV = peak systolic velocity; EDV = end diastolic velocity; ICA = internal carotid artery; CCA = common carotid artery]
== END | disposition home or self-care (01) ==
PROVIDERS: PCP Family Medicine; Referring Provider Family Medicine; Visit Provider Family Medicine
DX: I77.1 Stricture of artery (principal)
CPT/HCPCS: 93880